=== PATIENT | male | born 1965 | race Caucasian/White ===

== ENCOUNTER → 2020-11-10 | Outpatient (CLI) | payer BC ==
[2020-11-11 12:15] LABS: RHEUMATOID ARTHRITIS FACTOR <10.0 IU/mL (0.0-13.9)
[2020-11-12 23:07] LABS: CCP ANTIBODIES IGG/IGA 10 units (0-19)
== END ==
LOC: LAB 09:53
PROVIDERS: Nurse Practitioner Family
DX: M25.531 Pain in right wrist (principal); M25.532 Pain in left wrist; R76.8 Other specified abnormal immunological findings in serum; M25.50 Pain in unspecified joint; D89.9 Disorder involving the immune mechanism, unspecified; Z87.39 Personal history of other diseases of the musculoskeletal system and connective tissue
CPT/HCPCS: 36415; 73110; 81001; 82570; 83520; 84156; 84550; 85652; 86140; 86200; 86431